=== PATIENT | male | born 1975 | race Caucasian/White ===

== ENCOUNTER 2018-08-18 10:21 | Emergency (ER) | payer OTHER ==
[2018-08-18 10:36] VITALS: BP 120/73
[2018-08-18 10:57] LABS: Influenza A Molecular NEGATIVE (Negative); Influenza B Molecular NEGATIVE (Negative)
--- NOTE | 2018-08-18 11:09 | UC ---
Respiratory Complaint HPI - HPI Summary HPI Summary: Mr. Lindo has had some mild URI symptoms for several days but he began to develop a bad, painful cough oalong with malaise and chills on Saturday. he's had no medication. - History of Current Complaint Chief Complaint: UCRespiratory Stated Complaint: CHEST CONGESTION Time Seen by Provider: 08/18/18 10:57 Hx Obtained From: Patient Onset/Duration: Gradual Onset Timing: Constant Severity Initially: Mild Severity Currently: Moderate Pain Intensity: 5 Character: Cough: Productive Aggravating Factors: Nothing Alleviating Factors: Nothing Associated Signs And Symptoms: Positive: Fever, Chills, Pleuritic Chest Pain, Nasal Congestion - Allergies/Home Medications Allergies/Adverse Reactions: Allergies Allergy/AdvReac Type Severity Reaction Status Date / Time No Known Allergies Allergy Verified 08/18/18 10:36 PMH/Surg Hx/FS Hx/Imm Hx Previously Healthy: Yes - Surgical History Surgical History: Yes Surgery Procedure, Year, and Place: APPENDECTOMY - Social History Alcohol Use: None Substance Use Type: None Smoking Status (MU): Light Every Day Tobacco Smoker Type: Cigarettes Amount Used/How Often: 1/2 ppd Review of Systems All Other Systems Reviewed And Are Negative: Yes Constitutional: Positive: Fever, Chills, Fatigue Skin: Positive: Negative Eyes: Positive: Negative ENT: Positive: Sore Throat, Nasal Discharge Respiratory: Positive: Cough Cardiovascular: Positive: Negative Gastrointestinal: Positive: Negative Genitourinary: Positive: Negative Motor: Positive: Negative Neurovascular: Positive: Negative Musculoskeletal: Positive: Negative Neurological: Positive: Negative Is Patient Immunocompromised?: No Physical Exam - Summary Physical Exam Summary: He was non-toxic in appearance with stable vitals. Triage Information Reviewed: Yes Appearance: Well-Appearing Vital Signs: Initial Vital Signs Temp 99.7 F 08/18/18 10:32 Pulse 84 08/18/18 10:32 Resp 18 08/18/18 10:32 BP 120/73 08/18/18 10:32 Pulse Ox 98 08/18/18 10:32 Vital Signs Reviewed: Yes Eyes: Positive: Conjunctiva Clear ENT: Positive: Nasal congestion Neck exam: Normal Respiratory Exam: Normal Cardiovascular Exam: Normal Abdominal Exam: Normal Musculoskeletal Exam: Normal Respiratory Course/Dx - Course Course Of Treatment: This is likely viral but may be a secondary bacterial bronchitis in a smoker. I will treat with a Z-pack and cough med. - Differential Dx/Diagnosis Provider Diagnosis: Acute bronchitis Discharge - Sign-Out/Discharge Documenting (check all that apply): Patient Departure All imaging exams completed and their final reports reviewed: No Studies - Discharge Plan Condition: Stable Disposition: HOME Patient Education Materials: Acute Bronchitis (ED), How to Stop Smoking (ED) Referrals: Josefina Richmond RN [Primary Care Provider] - - Billing Disposition and Condition Condition: STABLE Disposition: Home
== END 2018-08-18 11:20 | disposition home or self-care (01) ==
LOC: UCEAST 10:21
DX: J20.9 Acute bronchitis, unspecified (principal); F17.210 Nicotine dependence, cigarettes, uncomplicated
CPT/HCPCS: 99202; G0463

== ENCOUNTER 2019-01-25 18:26 | Emergency (ER) | payer OTHER ==
[2019-01-25 18:39] VITALS: BP 130/80
--- NOTE | 2019-01-25 19:55 | UC ---
Ear Complaint HPI - History of Current Complaint Chief Complaint: UCUpperExtremity Stated Complaint: L HAND INJURY Time Seen by Provider: 01/25/19 18:46 Pain Intensity: 3 Pain Scale Used: 0-10 Numeric - Allergies/Home Medications Allergies/Adverse Reactions: Allergies Allergy/AdvReac Type Severity Reaction Status Date / Time No Known Allergies Allergy Verified 01/25/19 18:38 Home Medications: Home Medications NK [No Home Medications Reported] 01/25/19 [History Confirmed 01/25/19] PMH/Surg Hx/FS Hx/Imm Hx - Surgical History Surgical History: Yes Surgery Procedure, Year, and Place: APPENDECTOMY - Social History Alcohol Use: None Substance Use Type: None Smoking Status (MU): Light Every Day Tobacco Smoker Type: Cigarettes Amount Used/How Often: 1/2 ppd Physical Exam Vital Signs: Initial Vital Signs Temp 97.8 F 01/25/19 18:36 Pulse 84 01/25/19 18:36 Resp 12 01/25/19 18:36 BP 130/80 01/25/19 18:36 Pulse Ox 100 01/25/19 18:36 Diagnostics - Radiology LEFT HAND XRAYS Radiology Interpretation Completed By: Radiologist Summary of Radiographic Findings: No acute fracture. No dislocation. Old displaced fracture proximal end of first proximal phalanx Discharge ED - Discharge Plan Condition: Stable Disposition: HOME Patient Education Materials: Finger Fracture (ED) Forms: *Work Release Referrals: Kyler Unger MD [Medical Doctor] - 5 Days Josefina Richmond RN [Primary Care Provider] - If Needed Additional Instructions: I'm concerned that you may have a break in an accessory bone of your thumb. Wear the splint for protection and support. Call orthopedics first thing tomorrow morning to schedule a follow-up appointment for this week. OTC medications as needed for discomfort. - Billing Disposition and Condition Condition: STABLE Disposition: Home
--- NOTE | 2019-01-25 22:26 | UC ---
Hand/Wrist HPI - HPI Summary HPI Summary: JAMMED HIS LEFT THUMB IN A FREEZER DOOR YESTERDAY WHILE AT WORK AROUND 2 PM. HAS PAIN AND SWELLING. DENIES ANY PREVIOUS INJURY TO THE LEFT THUMB. - History Of Current Complaint Chief Complaint: UCUpperExtremity Stated Complaint: L HAND INJURY Time Seen by Provider: 01/25/19 18:46 Hx Obtained From: Patient Onset/Duration: Sudden Onset, Lasting Days - 1 DAY, Still Present Severity Initially: Moderate Severity Currently: Moderate Pain Intensity: 3 Pain Scale Used: 0-10 Numeric Character Of Pain: Sharp Aggravating Factor(s): Movement Alleviating Factor(s): Rest Associated Signs And Symptoms: Positive: Swelling Related History: Dominant Hand Right - Allergies/Home Medications Allergies/Adverse Reactions: Allergies Allergy/AdvReac Type Severity Reaction Status Date / Time No Known Allergies Allergy Verified 01/25/19 18:38 Home Medications: Home Medications NK [No Home Medications Reported] 01/25/19 [History Confirmed 01/25/19] PMH/Surg Hx/FS Hx/Imm Hx Previously Healthy: Yes - Surgical History Surgical History: Yes Surgery Procedure, Year, and Place: APPENDECTOMY - Family History Known Family History: Positive: Non-Contributory - Social History Alcohol Use: None Substance Use Type: None Smoking Status (MU): Light Every Day Tobacco Smoker Type: Cigarettes Amount Used/How Often: 1/2 ppd Review of Systems All Other Systems Reviewed And Are Negative: Yes Constitutional: Positive: Negative Skin: Positive: Negative Respiratory: Positive: Negative Cardiovascular: Positive: Negative Gastrointestinal: Positive: Negative Musculoskeletal: Positive: Arthralgia, Decreased ROM, Edema Physical Exam Triage Information Reviewed: Yes Appearance: Well-Appearing, No Pain Distress, Well-Nourished Vital Signs: Initial Vital Signs Temp 97.8 F 01/25/19 18:36 Pulse 84 01/25/19 18:36 Resp 12 01/25/19 18:36 BP 130/80 01/25/19 18:36 Pulse Ox 100 01/25/19 18:36 Vital Signs Reviewed: Yes Eyes: Positive: Conjunctiva Clear ENT: Positive: Hearing grossly normal Neck: Positive: Supple Respiratory: Positive: No respiratory distress, No accessory muscle use Cardiovascular: Positive: Pulses Normal Musculoskeletal: Positive: ROM Limited @ - LEFT THUMB, Edema @ - LEFT THUMB, Other: - TTP LEFT THUMB MCP JOINT AND METACARPAL BONE. TTP LEFT INDEX FINGER MCP JOINT Neurological: Positive: Alert Psychological: Positive: Age Appropriate Behavior Skin: Negative: Rashes Diagnostics - Radiology LEFT HAND XRAYS Radiology Interpretation Completed By: Radiologist Summary of Radiographic Findings: No acute fracture. No dislocation. Old displaced fracture proximal end of first proximal phalanx laterally Hand/Wrist Course/Dx - Course Course Of Treatment: X-RAY ON MY INITIAL INTERPRETATION WITH POSSIBLE BIPARTITE ACCESSORY BONE VERSUS FRACTURE. RADIOLOGY READ INTERPRETED AN OLD DISPLACED FRACTURE. PATIENT FELT BETTER IN A THUMB SPICA SPLINT. WAS ADVISED TO ICE THE INJURY AND CALL ORTHOPEDICS FIRST THING TOMORROW MORNING FOR AN APPOINTMENT THIS WEEK FOR FURTHER EVALUATION. - Differential Dx/Diagnosis Provider Diagnosis: Fracture of thumb, left, closed Discharge ED - Sign-Out/Discharge Documenting (check all that apply): Patient Departure All imaging exams completed and their final reports reviewed: Yes - Discharge Plan Condition: Stable Disposition: HOME Patient Education Materials: Finger Fracture (ED) Forms: *Work Release Referrals: Kyler Unger MD [Medical Doctor] - 5 Days Josefina Richmond RN [Primary Care Provider] - If Needed Additional Instructions: I'm concerned that you may have a break in an accessory bone of your thumb. Wear the splint for protection and support. Call orthopedics first thing tomorrow morning to schedule a follow-up appointment for this week. OTC medications as needed for discomfort. - Billing Disposition and Condition Condition: STABLE Disposition: Home
== END 2019-01-25 19:30 | disposition home or self-care (01) ==
LOC: UCEAST 18:26
DX: S62.502A Fracture of unspecified phalanx of left thumb, initial encounter for closed fracture (principal); W23.0XXA Caught, crushed, jammed, or pinched between moving objects, initial encounter; Y92.9 Unspecified place or not applicable; F17.210 Nicotine dependence, cigarettes, uncomplicated
CPT/HCPCS: 99212; G0463

== ENCOUNTER 2019-04-30 17:07 | Emergency (ER) | payer SELFPAY ==
--- OUTSIDE RECORDS SUMMARY | 2019-04-30 17:16 | XMS REPORT | Continuity of Care Document ---
:1975 External Reference #:[id number] Author Name NAKUL Cantrell (transmitted by agent of provider Heaven Rivers) Address [address] [place] [id number] Care Team Providers Name Role Phone Josefina Aranda FNP - Nurse Care Team Information Mixer Attendant [phone] Practitioner Problems Description No Information Available Social History Type Date Description Comments Sex Unknown ETOH Use Denies alcohol use Tobacco Use Start: Unknown Patient is a current smoker, smokes every day Smoking Status Reviewed: 03/05/19 Patient is a current smoker, smokes every day Exercise Type/Frequency Exercises regularly Allergies, Adverse Reactions, Alerts Description No Known Drug Allergies Medications Active Medications SIG Qnty Indications Ordering Provider Date Ibuprofen as needed Unknown Immunizations Description No Information Available Vital Signs Date Vital Result Comment 03/05/2019 1:21pm Height 72 inches 6'0" Heart Rate 88 /min BP Systolic 126 mmHg BP Diastolic 88 mmHg Respiratory Rate 18 /min Body Temperature 98.1 F Pain Level 5 02/12/2019 1:08pm Height 72 inches 6'0" Heart Rate 86 /min BP Systolic 126 mmHg BP Diastolic 80 mmHg Respiratory Rate 18 /min Body Temperature 98.0 F Pain Level 5 Results Description No Information Available Procedures Description No Information Available Medical Devices Description No Information Available Encounters Type Date Location Provider Dx Diagnosis Office Visit 02/12/2019 Eve Aponte S63.642 Sprain of 1:00p [facility] A metacarpophalangeal [place] joint of left thumb, init Office Visit 01/29/2019 Eve Young S63.642 Sprain of 1:15p [facility] at [facility] A metacarpophalangeal [place] joint of left thumb, init M65.332 Trigger finger, left middle finger Assessments Date Code Description Provider 03/05/2019 S63.642D Sprain of metacarpophalangeal joint of left Cathi Young, RPA-C thumb, subsequent encounter 03/05/2019 S63.642D Sprain of metacarpophalangeal joint of left Cathi Young, RPA-C thumb, subsequent encounter 02/12/2019 S63.642A Sprain of metacarpophalangeal joint of left Fay [facility] M.D. thumb, initial encounter 01/29/2019 S63.642A Sprain of metacarpophalangeal joint of left Cathi Young, RPA-C thumb, initial encounter 01/29/2019 M65.332 Trigger finger, left middle finger Cathi Young, RPA-C Plan of Treatment Future Appointment(s):03/26/2019 1:30 pm - [facility] M.D. at [facility] [place]/05/2019 - Cathi Young, RPA-[id number] Sprain of metacarpophalangeal joint of left thumb, subsequent encounterNew Therapy: Physical TherapyFollow up:Follow up: 3 weeks Functional Status Description No Information Available Mental Status Description No Information Available Referrals Description No Information Available
--- OUTSIDE RECORDS SUMMARY | 2019-04-30 17:16 | XMS REPORT | Continuity of Care Document ---
:1975 External Reference #:[id number] Author Name F[facility] M.D. (transmitted by agent of provider Kiarra Rios) Address [address] [place] [address] [place] [address] Care Team Providers Name Role Phone Josefina Aranda FNP - Nurse Care Team Information Machine I Coremaker [phone] Practitioner Problems Description No Information Available Social History Type Date Description Comments Sex Unknown ETOH Use Denies alcohol use Tobacco Use Start: Unknown Patient is a current smoker, smokes every day Smoking Status Reviewed: 03/26/19 Patient is a current smoker, smokes every day Exercise Type/Frequency Exercises regularly Allergies, Adverse Reactions, Alerts Description No Known Drug Allergies Medications Active Medications SIG Qnty Indications Ordering Provider Date Ibuprofen as needed Unknown Immunizations Description No Information Available Vital Signs Date Vital Result Comment 03/26/2019 1:37pm Height 72 inches 6'0" Heart Rate 68 /min BP Systolic 126 mmHg BP Diastolic 84 mmHg Pain Level 0 03/05/2019 1:21pm Height 72 inches 6'0" Heart Rate 88 /min BP Systolic 126 mmHg BP Diastolic 88 mmHg Respiratory Rate 18 /min Body Temperature 98.1 F Pain Level 5 Results Description No Information Available Procedures Description No Information Available Medical Devices Description No Information Available Encounters Type Date Location Provider Dx Diagnosis Office Visit 03/26/2019 Eve Aponte S63.642 Sprain of 1:30p [facility] at [facility] D metacarpophalangeal [place] joint of left thumb, subs Office Visit 03/05/2019 Eve Young S63.642 Sprain of 1:00p Orthoped[facility] at [facility] D metacarpophalangeal [place] joint of left thumb, subs S63.642D Sprain of metacarpophalangeal joint of left thumb, subs Office 02/12/2019 Eve Nicholashanie S63.642A Sprain of Visit 1:00p [facility] at [facility] metacarpophalangeal [place] joint of left thumb, init Office 01/29/2019 Eve Winkler S63.642A Sprain of Visit 1:15p [facility] at [place], metacarpophalangeal [place] RPA-C joint of left thumb, init M65.332 Trigger finger, left middle finger Assessments Date Code Description Provider 03/26/2019 S63.642D Sprain of metacarpophalangeal joint of left Fay [facility] M.D. thumb, subsequent encounter 03/05/2019 S63.642D Sprain of metacarpophalangeal joint of left Cathi Bitmounika, RPA-C thumb, subsequent encounter 03/05/2019 S63.642D Sprain of metacarpophalangeal joint of left Cathi Bitting, RPA-C thumb, subsequent encounter 02/12/2019 S63.642A Sprain of metacarpophalangeal joint of left Fay [facility] M.D. thumb, initial encounter 01/29/2019 S63.642A Sprain of metacarpophalangeal joint of left Cathi Bitmounika, RPA-C thumb, initial encounter 01/29/2019 M65.332 Trigger finger, left middle finger Cathi Bitting, RPA-C Plan of Treatment 03/26/2019 - Fay [facility] M.D.S63.642D Sprain of metacarpophalangeal joint of left thumb, subsequent encounterFollow up:Follow up: As needed Functional Status Description No Information Available Mental Status Description No Information Available Referrals Description No Information Available
--- NOTE | 2019-04-30 18:20 | UC ---
Respiratory Complaint HPI - HPI Summary HPI Summary: 43 yo male with hx COPD presents with 4 day hx of progressively worsening cough and wheezing cough productive at times no fever/chills has had to use his ventolin inhaler and it has not been helping - History of Current Complaint Chief Complaint: UCGeneralIllness Stated Complaint: CONGESTED Time Seen by Provider: 04/30/19 18:19 Onset/Duration: Gradual Onset Timing: Constant Severity Initially: Mild Severity Currently: Moderate Pain Intensity: 4 Pain Scale Used: 0-10 Numeric Character: Cough: Productive Aggravating Factors: Exertion, Recumbent Position Alleviating Factors: Nothing Associated Signs And Symptoms: Positive: Wheezing, Nasal Congestion - Allergies/Home Medications Allergies/Adverse Reactions: Allergies Allergy/AdvReac Type Severity Reaction Status Date / Time No Known Allergies Allergy Verified 04/30/19 17:34 PMH/Surg Hx/FS Hx/Imm Hx Previously Healthy: Yes Respiratory History: COPD, Bronchitis - Surgical History Surgical History: Yes Surgery Procedure, Year, and Place: APPENDECTOMY - Family History Known Family History: Positive: Hypertension, Non-Contributory - Social History Alcohol Use: Rare Substance Use Type: None Smoking Status (MU): Heavy Every Day Tobacco Smoker Type: Cigarettes Amount Used/How Often: 1/2 ppd Review of Systems All Other Systems Reviewed And Are Negative: Yes ENT: Positive: Ear Ache Respiratory: Positive: Cough, Other - wheezing Cardiovascular: Positive: Negative Gastrointestinal: Positive: Negative Genitourinary: Positive: Negative Motor: Positive: Negative Neurovascular: Positive: Negative Musculoskeletal: Positive: Negative Neurological: Positive: Negative Psychological: Positive: Negative Physical Exam Triage Information Reviewed: Yes Appearance: Well-Appearing, No Pain Distress, Well-Nourished Vital Signs: Initial Vital Signs Temp 98.0 F 04/30/19 17:30 Pulse 71 04/30/19 17:30 Resp 18 04/30/19 17:30 BP 132/84 04/30/19 17:30 Pulse Ox 100 04/30/19 17:30 Vital Signs Reviewed: Yes Eyes: Positive: Conjunctiva Clear ENT: Positive: Hearing grossly normal, Uvula midline. Negative: Nasal congestion, Nasal drainage, Tonsillar swelling, Tonsillar exudate, Dental tenderness Neck: Positive: Supple, Nontender, No Lymphadenopathy Respiratory: Positive: No respiratory distress, Wheezing Cardiovascular: Positive: RRR, No Murmur Musculoskeletal: Positive: ROM Intact, No Edema Neurological: Positive: Alert Psychological Exam: Normal Skin Exam: Normal Diagnostics - EKG Cardiac Rate: NL Cardiac Rhythm: Sinus: Normal Ectopy: None ST Segment: Normal Summary of EKG Findings: NORMAL EKG Re-Evaluation - Re-Evaluation First Eval Re-Evaluation Time: 19:01 Change: Unchanged - little or no change Second Eval Re-Evaluation Time: 19:40 Change: Improved - felling better now Respiratory Course/Dx - Differential Dx/Diagnosis Provider Diagnosis: Acute exacerbation of chronic obstructive airways disease, Elevated BP without diagnosis of hypertension Discharge ED - Sign-Out/Discharge Documenting (check all that apply): Patient Departure All imaging exams completed and their final reports reviewed: No - Discharge Plan Condition: Improved Disposition: HOME Prescriptions: predniSONE TAB* [Deltasone 20 MG TAB*] 40 mg PO DAILY #10 tab Patient Education Materials: COPD (Chronic Obstructive Pulmonary Disease) (ED) , Chest Wall Pain (ED) Forms: *Work Release Referrals: [facility] [[facility]] - 1 Week Additional Instructions: recheck for new or worsening symptoms - Billing Disposition and Condition Condition: IMPROVED Disposition: Home
[2019-04-30] MEDS ORDERED: Albuterol 2.5 MG/3 ML NEB.SOL* (0.083%) INH ONE (18:27)
[2019-04-30] MEDS ORDERED: Ipratropium 0.5MG/2.5ML NEB* 0.5 MG/2.5 ML NEB.SOLN INH ONE (18:27)
[2019-04-30 19:43] VITALS: BP 123/80
== END 2019-04-30 19:56 | disposition home or self-care (01) ==
LOC: UCEAST 17:07
DX: J44.1 Chronic obstructive pulmonary disease with (acute) exacerbation (principal); R03.0 Elevated blood-pressure reading, without diagnosis of hypertension; F17.210 Nicotine dependence, cigarettes, uncomplicated; H92.09 Otalgia, unspecified ear
CPT/HCPCS: 71046; 93005; 99212; G0463; J7512